=== PATIENT | female | born 1960 | race Caucasian/White ===

== ENCOUNTER 2020-02-25 16:53 | Inpatient (IN) ==
[2020-02-25] MEDS ORDERED: NS 1,000 ML IV ONE (17:17)
[2020-02-25 17:44] LABS: BASO# 0.02 X1000 (0.0-0.2); BASO% 0.2 % (0.0-0.8); EOS# 0.04 X1000 (0.0-0.7); EOS% 0.5 % (0.0-10.0); HEMATOCRIT 41.7 % (37.0-47.0); HEMOGLOBIN 13.7 g/dL (12.0-16.0); IMM GRAN# 0.01 X1000 (0.0-0.04); IMM GRAN% 0.1 % (0.0-0.5); LYMPH# 1.62 X1000 (1.2-3.4); LYMPH% 19.9 % (20.5-51.1); MCH 28.4 PG (27-31); MCHC 32.9 g/dL (33-37); MCV 86.3 FL (81-99); MONO# 0.55 X1000 (0.11-0.59); MONO% 6.8 % (1.7-9.3); MPV 10.1 FL (7.4-10.4); NEUT# 5.89 X1000 (1.4-6.5); NEUT% 72.5 % (42.2-75.2); PLT 245 X1000 (130-400); RBC 4.83 XMIL (4.2-5.4); RDW 13.5 % (11.5-14.5); WBC 8.13 X1000 (4.8-10.8)
[2020-02-25 18:03] LABS: AGAP 17; ALBUMIN 3.8 g/dL (3.5-5.0); ALKALINE PHOSPHATASE 143 U/L (32-104); BUN 10 mg/dL (8-22); CALCIUM 9.3 mg/dL (8.8-10.2); CHLORIDE 99 mmol/L (98-107); COSMO 280; CREATININE 0.8 mg/dL (0.5-0.9); ESTIMATED GFR > 60; GLUCOSE 129 mg/dL (70-104); GOT 21 U/L (10-30); GPT 19 U/L (10-36); POTASSIUM 3.7 mmol/L (3.5-5.1); SODIUM 140 mmol/L (136-145); TCO2 25 mmol/L (25-35); TOTAL PROTEIN 6.3 g/dL (6.3-8.3)
[2020-02-25] MEDS ORDERED: PHENERGAN IV ONE (18:45)
[2020-02-25] MEDS ORDERED: SODIUM CHLORIDE 0.9% INJ ONE (18:45)
--- NOTE | 2020-02-25 18:57 | PROVIDER DOCUMENTATION ---
This chart was entered by Aleyda Morris Scribe, acting as scribe for Heath Quevedo MD. HPI-Abdominal Pain/GI Problem - General Source: patient - History of Present Illness-ABD Nature of Presenting Problems: 59 y/o female presents to the ED via EMS with complaint of diarrhea times seven days and now feeling weak, light-headed, and short of breath with s tanding/walking . The patient denies abdominal pain, nausea, and vomiting. She states she had recent surgery on her left foot with jimmy placement February 06 and has been mostly bed ridden since that time with onset of symptoms the following Friday. She denies recent antibiotic treatment. She did attempt Imodium at home and Dr. Breana Friend also called something in for her Friday and again today but the patient is unaware of the name of these medications. She does give a family history of blood clots in Mother and states she has been taking Lovenox injections daily since her recent surgery. Quality of Pain: reports: none Onset/Duration: reports: 1 week ago Timing: reports: getting worse Activities at Onset: reports: light activity Modifying Factors: worse with: other (standing/walking) Associated Symptoms: reports: diarrhea, shortness of breath, weakness, other (light-headed with standing). denies: fever/chills, nausea, vomiting Last BM: this evening Dark Stools Present?: reports: none noticed Rectal Bleeding: reports: none Rectal Pain: reports: none Emesis Description: reports: none Similar Symptoms Previously?: No <Heath Quevedo - Last Filed: 02/25/20 22:08> <Abiola Kaye - Last Filed: 02/25/20 22:16> - General Chief Complaint: Diarrhea Stated Complaint: WEAKNESS/ N/V/ DEHYDRATION Time Seen by Provider: 02/25/20 17:09 Allergies/Adverse Reactions: Patient Allergies Allergy/AdvReac Type Severity Reaction Status Date / Time No Known Allergies Allergy Verified 02/25/20 17:17 Home Medications: Home Medication List Medication Instructions Recorded Confirmed Last Taken Type Amoxicillin 500 mg PO TID 06/13/18 06/13/18 Unknown History Atenolol 50 mg PO DAILY 06/13/18 06/13/18 Unknown History Colesevelam [Welchol] 2 tab PO TID 06/13/18 06/13/18 Unknown History Ezetimibe 10 mg PO DAILY 06/13/18 06/13/18 Unknown History Levothyroxine Sodium [Synthroid] 25 mcg PO DAILY@0700 06/13/18 06/13/18 Unknown History Lisinopril/Hydrochlorothiazide 1 tab PO DAILY 06/13/18 06/13/18 Unknown History [Lisinopril-Hctz 10-12.5 mg Tab] Meloxicam 15 mg PO DAILY 06/13/18 06/13/18 Unknown History Ondansetron [Zofran] 4 mg PO Q6H PRN PRN #15 tab 06/13/18 Unknown Rx Simvastatin 2 mg PO QHS 06/13/18 06/13/18 Unknown History Hydrocodone/APAP 5 mg/325 mg 1 ea PO Q6H PRN PRN #14 tab 01/29/20 Unknown Rx [[place]-5] Review of Systems - Adult - REVIEW OF SYSTEMS - ADULT Constitutional: reports: fatique. denies: chills, fever Eyes: reports: no symptoms reported Ears, Nose, Mouth & Throat: reports: no symptoms reported Cardiovascular: reports: no symptoms reported Respiratory: reports: dyspnea on exertion, shortness of breath. denies: cough, hemoptysis Gastrointestinal: reports: diarrhea. denies: abdominal pain, nausea, vomiting Genitourinary: reports: no symptoms reported Musculoskeletal: reports: no symptoms reported Integumentary: reports: no symptoms reported Neurological: reports: no symptoms reported Psychiatric: reports: no symptoms reported Endocrine: reports: no symptoms reported Hematologic/Lymphatic: reports: no symptoms reported Allergic/Immunologic: reports: no symptoms reported All Other Systems: Reviewed and Negative <Heath Quevedo - Last Filed: 02/25/20 22:08> Past History - Adult - PAST MEDICAL HISTORY-ADULT Review of Records: reports: Old Records Reviewed, Nursing Assessment Review, Medications Reviewed Cardiovascular: reports: HTN, hyperlipidemia Gastrointestinal: reports: GERD Other Conditions: reports: denies history - PRIOR SURGERIES/PROCEDURES Surgical/Procedure History: reports: none - IMMUNIZATION STATUS Childhood Immunizations: See Nurse Assessment Flu Vaccine: See Nurse Assessment - FAMILY HISTORY Family History: CAD over 55 yo - SOCIAL HISTORY Smoking: non-smoker Living Situation: family <Heath Quevedo - Last Filed: 02/25/20 22:08> Physical Exam-General - PHYSICAL EXAM-ADULT Initial Vital Signs Reviewed: Yes (BP 154/96 on exam ) - CONSTITUTIONAL General Appearance: alert, no apparent distress, obese. negative: appears well - HEAD, EARS, NOSE, MOUTH & THROAT HENMT: normocephalic/atraumatic, TMs normal, pharyngeal erythema (posterior), other (dry mucous membranes w/coated tongue) - NECK Neck: full range of motion, supple - RESPIRATORY Respiratory: lungs clear. negative: rales, rhonchi, wheezing - CARDIOVASCULAR Cardiovascular: regular rate, rhythm - GASTROINTESTINAL (ABDOMEN) Abdominal Exam: non tender, soft. negative: distended, guarding, rebound - MUSCULOSKELETAL Extremity: other (cast on left lower leg) - SKIN Integumentary: warm/dry. negative: diaphoresis - NEUROLOGIC Neurologic: grossly normal - PSYCHIATRIC Psych/Mental Status: normal mood/affect, normal thought content, normal thought process, oriented x 3 <Heath uQevedo - Last Filed: 02/25/20 22:08> Progress - PLAN OF CARE/RESULTS Progress/Plan/Lab Results: Vital Signs - 8 hr 02/25/20 17:00 Temperature 97.6 F Pulse Rate 78 Respiratory Rate 20 Blood Pressure 154/96 O2 Sat by Pulse Oximetry 95 Result Diagrams: 02/25/20 17:30 02/25/20 17:30 - CT/MRI 1 CT Study: Abdomen, Angiogram, Pelvis Impression: Abnormal (EXAM: CT ABD/PELVIS/PULM ARTERIES INDICATION: recent surgery SOB, elev ddimer,diarrhea, vomiting TECHNIQUE: This exam was performed using automated exposure control, adjustment of mA or kV according to patient size, and/or use of iterative reconstruction technique. Thin section axial images through the chest and 3-D MIPS were obtained. Standard axial images through the abdomen and pelvis were obtained and coronal MIPS were generated. COMPARISON: None. FINDINGS: CTA CHEST: There is a large saddle embolus involving the left main and right main pulmonary arteries. The clot extends to higher order branches bilaterally, more extensive on the right. The clot burden appears heavy. There is no evidence of aortic dissection or aneurysm. There does not appear to be significant right heart strain. There is no cardiomegaly. There is no evidence of significant mediastinal or hilar lymphadenopathy. There is minimal subsegmental atelectasis bilaterally at the lower lung zones. The lungs are clear, otherwise. There is no evidence of pulmonary infarction. No pleural fluid collection and no pneumothorax is appreciated. CT ABDOMEN/PELVIS: There has been a prior cholecystectomy. The liver, spleen, pancreas, adrenal glands, kidneys, and urinary bladder are unremarkable. There has been a prior hysterectomy. The the appendix is normal. There is no focal bowel wall thickening or bowel obstruction. The remainder of the GI tract is unremarkable. No focal inflammatory changes, free abdominal gas, or free fluid is appreciated. IMPRESSION: 1.Bilateral pulmonary emboli with a large saddle embolus. The clot burden appears to be heavy. 2.Mild subsegmental atelectasis bilaterally but no evidence of pulmonary infarct. 3.No evidence of acute abdominal or pelvic pathology. Electronically signed by Rod Ray 02/25/2020 9:35 PM) - CONSULTS/PCP/HOSPITALIST Notification #1 *Consult/PCP/Hospitalist*: Hospitalist, Dr. Lopez Time Discussed: 22:09 Reason/Comments: Pulmonary emboli Consult Disposition: Admit - CHANGE OF SHIFT REPORT (ED Provider) 1 Report Given and Care Transferred to:: Scott Kaye Time of Transfer: 18:54 Items Pending: Labs (D-dimer), Other (EKG) <Heath Qeuvedo - Last Filed: 02/25/20 22:08> - PLAN OF CARE/RESULTS Progress/Plan/Lab Results: Vital Signs - 8 hr 02/25/20 17:00 02/25/20 18:20 02/25/20 18:53 Temperature 97.6 F Pulse Rate 78 73 Pulse Rate [Sitting] 80 Pulse Rate [Standing] 94 H Pulse Rate [Supine] 75 Respiratory Rate 20 20 Blood Pressure 154/96 151/100 Blood Pressure [Sitting] 170/100 Blood Pressure [Standing] 173/98 Blood Pressure [Supine] 161/102 O2 Sat by Pulse Oximetry 95 95 Laboratory Results - last 24 hr 02/25/20 02/25/20 02/25/20 17:30 17:30 17:30 WBC 8.13 RBC 4.83 Hgb 13.7 Hct 41.7 MCV 86.3 MCH 28.4 MCHC 32.9 L RDW Std Deviation 13.5 Plt Count 245 MPV 10.1 Immature Gran % (Auto) 0.1 Neut % (Auto) 72.5 Lymph % (Auto) 19.9 L [place] % (Auto) 6.8 Eos % (Auto) 0.5 Baso % (Auto) 0.2 Immature Gran # (Auto) 0.01 Neut # (Auto) 5.89 Lymph # (Auto) 1.62 [place] # (Auto) 0.55 Eos # (Auto) 0.04 Baso # (Auto) 0.02 D-Dimer, Quantitative Sodium 140 Potassium 3.7 Chloride 99 Carbon Dioxide 25 Anion Gap 17 BUN 10 Creatinine 0.8 Estimated GFR/1.73 m2 > 60 BUN/Creatinine Ratio 13 Glucose 129 H Calculated Osmolality 280 Calcium 9.3 Magnesium 1.8 Total Bilirubin 1.50 H AST 21 ALT 19 Alkaline Phosphatase 143 H Total Protein 6.3 Albumin 3.8 Globulin 3.0 Albumin/Globulin Ratio 2.0 02/25/20 17:30 WBC RBC Hgb Hct MCV MCH MCHC RDW Std Deviation Plt Count MPV Immature Gran % (Auto) Neut % (Auto) Lymph % (Auto) [place] % (Auto) Eos % (Auto) Baso % (Auto) Immature Gran # (Auto) Neut # (Auto) Lymph # (Auto) [place] # (Auto) Eos # (Auto) Baso # (Auto) D-Dimer, Quantitative 10.61 H Sodium Potassium Chloride Carbon Dioxide Anion Gap BUN Creatinine Estimated GFR/1.73 m2 BUN/Creatinine Ratio Glucose Calculated Osmolality Calcium Magnesium Total Bilirubin AST ALT Alkaline Phosphatase Total Protein Albumin Globulin Albumin/Globulin Ratio Orders Category Date Time Status Orthostatic Vital Signs NOW Care 02/25/20 18:[address] ABD/PELVIS/PULM ARTERIES [CT] Stat Exams 02/25/20 20:21 Completed CBC WITH DIFF [HEME] Stat Lab 02/25/20 17:30 Completed COMPREHENSIVE METABOLIC PANEL [CHEM] Stat Lab 02/25/20 17:30 Completed D-DIMER [COAG] Stat Lab 02/25/20 17:30 Completed MAGNESIUM [CHEM] Stat Lab 02/25/20 17:30 Completed 0.9% Sodium Chloride Inj [Ns] 1,000 ml Med 02/25/20 17:17 Discontinued IV 999 mls/hr Enoxaparin [Lovenox] Med 02/25/20 22:00 Active 100 mg SUBQ Q12H Promethazine [Phenergan] Med 02/25/20 18:45 Discontinued 25 mg IV NOW ONE Sodium Chloride 0.9% Med 02/25/20 18:45 Discontinued 10 ml INJ NOW ONE EKG [EKG] Routine Ther 02/25/20 17:24 Ordered Patient signed out to me from Dr Quevedo, pending ddimer and final dispo. DDimer elevated and CT showing large clot burden. Spoke to adonis Calvo instructional technology teacher. Given her vitals are stable he is ok with patient going to the floor with telemetry and would like lovenox 1mg/kg q12h. He would like an ECHO ordered for the AM. Orders placed per his recommendations. Result Diagrams: 02/25/20 17:30 02/25/20 17:30 <Abiola Kaye - Last Filed: 02/25/20 22:16> Departure - Departure Date of Disposition Decision: 02/25/20 Time of Disposition Decision: 22:08 <Heath Quevedo - Last Filed: 02/25/20 22:08> - Departure Certified Medical Emergency: Emergent - Critical Care Note This patient required my direct & personal management of CC.: Yes Total Time (mins): 35 Critical Care Statement: This patient required my direct personal management to treat or rule out processes, the absence of which, could potentiallly result in sudden, clinically significant life or limb threatening deterioration. <Abiola Kaye - Last Filed: 02/25/20 22:16> - Departure DIAGNOSIS: Bilateral pulmonary embolism, Shortness of breath Diarrhea Qualifiers: Diarrhea type: unspecified type Qualified Code(s): R19.7 - Diarrhea, unspecified Disposition: ADMITTED INPATIENT 09 Condition: Critical Referrals and Follow-Ups: None,PCP [Primary Care Provider] - Attestation - Physician/ SUJEY Attestation Patient care was provided by Advanced Practice Provider:: No The physician spent face to face time with patient:: Yes Advanced Practice Provider documentation review:: Supervising physician onsite and consulted in the evaluation and care of this patient. The physician did have a face to face encounter with the patient. <Abiola Kaye - Last Filed: 02/25/20 22:16> This chart was documented by the indicated scribe, (Aleyda Morris, Miguelibe) and accurately reflects the services I performed and decisions made by me, Heath Quevedo MD, as attested by the provider's signature.
--- NOTE | 2020-02-25 21:38 | Diag Imaging Result Doc PS360 ---
EXAM: CT ABD/PELVIS/PULM ARTERIES INDICATION: recent surgery SOB, elev ddimer,diarrhea, vomiting TECHNIQUE: This exam was performed using automated exposure control, adjustment of mA or kV according to patient size, and/or use of iterative reconstruction technique. Thin section axial images through the chest and 3-D MIPS were obtained. Standard axial images through the abdomen and pelvis were obtained and coronal MIPS were generated. COMPARISON: None. FINDINGS: CTA CHEST: There is a large saddle embolus involving the left main and right main pulmonary arteries. The clot extends to higher order branches bilaterally, more extensive on the right. The clot burden appears heavy. There is no evidence of aortic dissection or aneurysm. There does not appear to be significant right heart strain. There is no cardiomegaly. There is no evidence of significant mediastinal or hilar lymphadenopathy. There is minimal subsegmental atelectasis bilaterally at the lower lung zones. The lungs are clear, otherwise. There is no evidence of pulmonary infarction. No pleural fluid collection and no pneumothorax is appreciated. CT ABDOMEN/PELVIS: There has been a prior cholecystectomy. The liver, spleen, pancreas, adrenal glands, kidneys, and urinary bladder are unremarkable. There has been a prior hysterectomy. The the appendix is normal. There is no focal bowel wall thickening or bowel obstruction. The remainder of the GI tract is unremarkable. No focal inflammatory changes, free abdominal gas, or free fluid is appreciated. IMPRESSION: 1.Bilateral pulmonary emboli with a large saddle embolus. The clot burden appears to be heavy. 2.Mild subsegmental atelectasis bilaterally but no evidence of pulmonary infarct. 3.No evidence of acute abdominal or pelvic pathology. Electronically signed by Rod Ray 02/25/2020 9:35 PM
[2020-02-25] MEDS ORDERED: LOVENOX SUBQ SCH (22:00)
[2020-02-25] MEDS ORDERED: ZOFRAN IV PRN (22:15)
[2020-02-25] MEDS ORDERED: NS 1,000 ML IV SCH (22:30)
[2020-02-25] MEDS ORDERED: FLAGYL PO SCH (22:30)
--- NOTE | 2020-02-25 23:59 | ED EKG INTERP ---
EKG Interpretation - EKG Time of EKG reading by physician:: 19:08 EKG Read and Signed by:: Abiola Kaye EKG Interpretation (*Must complete 3 of following elements*): Abnormal Rate: 71 Rhythm: NSR [place]: left QRS: other (prolonged QT) ST Wave: non-specific ST changes (t wave inversions in multiple leads) Prior EKG Comparison: changes noted (10/2018) Attestation - Physician/ SUJEY Attestation Patient care was provided by Advanced Practice Provider:: No The physician spent face to face time with patient:: Yes Advanced Practice Provider documentation review:: Supervising physician onsite and consulted in the evaluation and care of this patient. The physician did have a face to face encounter with the patient.
--- NOTE | 2020-02-26 00:01 | EKG Report ---
Test Performed on : 02/25/2020 6:53:58 PM Test Reason : emboli Blood Pressure : / mmHG Vent. Rate : 071 BPM Atrial Rate : 071 BPM P-R Int : 136 ms QRS Dur : 088 ms QT Int : 462 ms P-R-T Axes : 042 -41 -56 degrees QTc Int : 502 ms Normal sinus rhythm. Left axis deviation Possible Lateral infarct , age undetermined T wave abnormality, consider inferior ischemia T wave abnormality, consider anterior ischemia Prolonged QT Abnormal ECG When compared with ECG of 13-JUN-2018 08:33, Borderline criteria for Lateral infarct are now present T wave inversion more evident in Inferior leads T wave inversion now evident in Anterolateral leads QT has lengthened Unconfirmed Result
[2020-02-26] MEDS: NS 1,000 ML IV SCH ×4 (03:30→18:06)
[2020-02-26] MEDS: FLAGYL PO SCH ×3 (05:47→22:44)
[2020-02-26] MEDS ORDERED: ZOFRAN PO PRN (06:09)
[2020-02-26] MEDS ORDERED: HYDROCHLOROTHIAZIDE PO PRN (06:09)
--- NOTE | 2020-02-26 06:52 | HISTORY AND PHYSICAL ---
CHIEF COMPLAINT: Diarrhea. HISTORY OF PRESENT ILLNESS: This is a 59-year-old female who recently broke her left lower extremity and had surgery with jimmy placement on February 06. She has been somewhat bedbound or very immobile since that time. She started having diarrhea around 7 days ago. She denies abdominal pain, nausea or vomiting. She came into the emergency room related to the diarrhea. She took some Imodium which Dr. Breana Friend had called in for her, I believe it was Friday. She was started on Lovenox injections at home. She really has no past medical history other than hypertension, hyperlipidemia, hypothyroidism and GERD, but her mother does have a history of blood clots. On arrival, she made some vague complaints from what I understand about shortness of breath. A D- dimer was checked, it was positive. A CT angio was obtained which showed bilateral pulmonary emboli with a large saddle embolus. A clot burden appears to be heavy. She was transferred to [place]'s PCU for admission. PAST MEDICAL HISTORY: See HPI. PREVIOUS SURGICAL HISTORY: 1. Left foot and ankle surgery. 2. Cholecystectomy. 3. Hysterectomy. 4. Right knee surgery. SOCIAL HISTORY: No tobacco, alcohol or illicit drugs. FAMILY HISTORY: Positive for blood clots in her mother. ALLERGIES: No known drug allergies. HOME MEDICATIONS: 1. Aspirin 325 p.o. daily. 2. Atenolol 50 mg p.o. daily. 3. Vitamin D3 4000 units p.o. daily. 4. Welchol 625 two tablets p.o. daily. 5. Vitamin B12 5000 mcg p.o. daily. 6. Omeprazole 20 mg p.o. b.i.d. 7. Premarin 0.625 mg p.o. daily. 8. Hydrochlorothiazide 12.5 p.o. p.r.n. 9. Synthroid 25 mcg p.o. daily. 10.Lisinopril hydrochlorothiazide 10/12.5 one p.o. daily. 11.Meloxicam 15 mg p.o. daily. 12.Zofran 4 mg p.o. q.6 p.r.n. 13.Somatostatin 20 mg p.o. at bedtime. REVIEW OF SYSTEMS: Fourteen point review of systems conducted with the patient. Pertinent positives listed above in the HPI. All other systems reviewed and found to be negative. PHYSICAL EXAMINATION: VITAL SIGNS: Temperature 97.9 degrees, pulse 77, respirations 17, blood pressure 149/74, oxygen saturation 95% on room air. GENERAL: Pleasant 59-year-old female lying in [facility] bed. She is alert and oriented x3, in no acute distress. HEENT: Head is atraumatic, normocephalic. Pupils equal, round and reactive to light. Extraocular eye movements intact. Sclerae anicteric. Conjunctivae pink. Oral mucosa is somewhat dry. NECK: Supple. No JVD. No thyromegaly. Trachea is midline. No cervical lymphadenopathy. CARDIAC: S1, S2 appreciated. No murmurs, gallops, rubs. LUNGS: Clear to auscultation bilaterally. No rhonchi, wheezes, rubs. Symmetric rise and fall of respirations. ABDOMEN: Soft, nondistended, nontender. Bowel sounds present all 4 quadrants. Normoactive. No pulsatile mass. No organomegaly. EXTREMITIES: No cyanosis, clubbing or edema. Left foot is in a cast. 2+ pedal pulses on the right side. GENITOURINARY: No bladder distention. Patient voids. Otherwise deferred. NEUROLOGICAL: Alert and oriented x3. No focal motor deficits. Otherwise nonfocal examination. DIAGNOSTIC DATA: CT of the abdomen and pelvis shows bilateral pulmonary emboli with a large saddle PE, heavy clot burden. LABORATORY DATA: CBC within normal limits. D-dimer 10.61. Sodium 140, potassium 3.7, chloride 99, carbon dioxide 25, BUN 10, creatinine 0.8, glucose 129. ASSESSMENT AND PLAN: 1. Large saddle PE. 2. Hypertension. 3. Diarrhea. 4. Hypothyroidism. PLAN: Admit patient to the [facility]. Lovenox 1 mg/kg b.i.d. Her first dose was started at [place]. We will order echo of her heart, ultrasound of her lower extremities. Stool culture and C. diff to be obtained. Morphine as needed for pain. We will rehydrate with normal saline. Patient was started on Flagyl 500 mg p.o. q.8 at [place] for diarrhea. We will continue at this time. Continue Synthroid. Check TSH. Continue antihypertensives. Further recommendations per patient's clinical course. Dictated by FRAN Cristina for Konstantin Hawley MD I have performed a face to face diagnostic evaluation. Labs/Xrays- reviewed, Exam- Chest- clear, CV- regular, Abd- soft. A/P- PTE- Admit, NPO, Lovenox. Dr. Hawley cc: FRAN Cristina MD [facility]
[2020-02-26] MEDS: WELCHOL PO SCH ×3 (08:20→20:44)
[2020-02-26] MEDS: VITAMIN D PO SCH (08:20)
[2020-02-26] MEDS: ASPIRIN PO SCH (08:20)
[2020-02-26] MEDS: PRINZIDE 10/12.5MG PO SCH (08:20)
[2020-02-26] MEDS: TENORMIN PO SCH (08:20)
[2020-02-26] MEDS: PRILOSEC PO SCH ×2 (08:21→20:44)
[2020-02-26] MEDS: VITAMIN B-12 SL SCH (08:21)
[2020-02-26] MEDS: SYNTHROID PO SCH (08:21)
[2020-02-26] MEDS ORDERED: ZETIA PO SCH (09:00)
[2020-02-26] MEDS ORDERED: LOVENOX SUBQ SCH (10:00)
[2020-02-26] MEDS ORDERED: HEPARIN IV PRN (10:09)
[2020-02-26] MEDS ORDERED: HEPARIN IV ONE (10:09)
[2020-02-26] MEDS ORDERED: HEPARIN 25,000 UNITS/D5W 25,000 UNIT/250 ML IV.SOLN IV SCH (10:15)
--- NOTE | 2020-02-26 11:15 | PROGRESS NOTE ---
DATE: 02/26/2020 SUBJECTIVE: The patient reports feeling fine. Denies any chest pain, shortness of breath, no chest pressure. OBJECTIVE: Vital Signs: Temperature 98.3 degrees, heart rate 68, respiratory rate 16, blood pressure 141/75, O2 saturation 94% on room air. General Examination: This is a 59-year-old female, lying in bed in no acute distress. Cardiovascular exam: S1, S2 heard. No murmurs, gallops, or rubs. Regular rate and rhythm. Respiratory exam: Clear bilaterally to auscultation. No work of breathing or using accessory muscles. Abdomen: Soft, nontender to palpation. Bowel sounds present. No organomegaly. Extremities: No clubbing, cyanosis, or edema. Peripheral pulses present in both legs. Neurological exam: Patient is alert and oriented times three. Moves 4 extremities. LABORATORY DATA: Reviewed. ASSESSMENT AND PLAN: 1. Large saddle pulmonary embolism. Patient had been started on Lovenox yesterday 1 mg/kg every 12 hours. What is important and surprising at the same time is that this patient has been on Lovenox since she had this ankle wound surgery. At this point, I prefer to change to heparin drip. We are going to check echocardiogram to see if there is any right heart strain. We will continue to monitor this patient closely. 2. Hypertension. Patient has been restarted on home medications. Blood pressure is under control. 3. Diarrhea. That condition is getting better. No more episodes of diarrhea. 4. Hypothyroidism. We will continue with home medications. 5. Disposition: We will continue to monitor this patient closely in the progressive care unit. We will keep her at least until Friday and monitor this patient closely. cc: Akshat Martinez MD
[2020-02-26 11:26] LABS: INR 1.17; PROTIME 15.1 Seconds (11.0-16.0)
[2020-02-26 11:27] LABS: PTT 38.6 Seconds (22.3-41.8)
[2020-02-26] MEDS: MORPHINE IV PRN (14:32)
--- NOTE | 2020-02-26 16:09 | ECHO REPORT ---
ORDER DATE: 02/26/2020 ECHOCARDIOGRAPHIC MEASUREMENTS: 1. Interventricular septum 0.9. 2. Left ventricular posterior wall 0.8. 3. Diastolic diameter 3.1 cm. 4. Left atrium 2.6 cm. 5. Aorta 2.6 cm. 6. Technically suboptimal study. 7. Aortic valve leaflets are trileaflet. 8. Pulmonic valve was normal. 9. There is mild mitral regurgitation. 10. Normal left ventricular cavity size. Estimated ejection fraction of 55 to 60 percent. 11. There is mild mitral regurgitation. 12. Right ventricle is dilated with reduced right ventricular systolic function. 13. There is moderate tricuspid regurgitation. Peak velocity across the tricuspid valve was 3.6 m/sec. 14. Pulmonary artery systolic pressure of 63 mmHg. There is pulmonary arterial hypertension. 15. Peak velocity across the aortic valve less than 2 m/sec. There is no aortic stenosis or regurgitation. 16. Anterior echo-free space suggestive of pericardial fat pad was noted. 17. IVC was dilated at 2.1 cm. cc: Apolinar Boateng MD
[2020-02-26] MEDS: ZOCOR PO SCH (20:44)
[2020-02-26] MEDS: ZETIA PO SCH (20:45)
[2020-02-27] MEDS: NS 1,000 ML IV SCH ×5 (01:47→19:13)
[2020-02-27] MEDS: HEPARIN 25,000 UNITS/D5W 25,000 UNIT/250 ML IV.SOLN IV SCH ×2 (01:57→17:11)
[2020-02-27] MEDS: PRILOSEC PO SCH ×3 (05:27→20:19)
[2020-02-27] MEDS: SYNTHROID PO SCH ×2 (05:27→06:15)
[2020-02-27] MEDS: FLAGYL PO SCH ×2 (05:27→05:32)
[2020-02-27 06:42] LABS: BASO# 0.02 X1000 (0.0-0.2); BASO% 0.3 % (0.0-0.8); EOS# 0.12 X1000 (0.0-0.7); EOS% 1.8 % (0.0-10.0); HEMATOCRIT 36.9 % (37.0-47.0); HEMOGLOBIN 11.9 g/dL (12.0-16.0); LYMPH% 31.7 % (20.5-51.1); MCH 28.5 PG (27-31); MCHC 32.2 g/dL (33-37); MCV 88.3 FL (81-99); MONO# 0.39 X1000 (0.11-0.59); MONO% 5.9 % (1.7-9.3); MPV 10.8 FL (7.4-10.4); NEUT% 60.3 % (42.2-75.2); PLT 209 X1000 (130-400); RBC 4.18 XMIL (4.2-5.4); RDW 13.6 % (11.5-14.5); WBC 6.63 X1000 (4.8-10.8)
[2020-02-27 07:17] LABS: AGAP 14; BUN 8 mg/dL (8-22); CALCIUM 8.6 mg/dL (8.8-10.2); CHLORIDE 106 mmol/L (98-107); COSMO 280; CREATININE 0.9 mg/dL (0.5-0.9); ESTIMATED GFR > 60; GLUCOSE 102 mg/dL (70-104); POTASSIUM 3.5 mmol/L (3.5-5.1); SODIUM 141 mmol/L (136-145); TCO2 21 mmol/L (25-35)
[2020-02-27] MEDS: ASPIRIN PO SCH (08:32)
[2020-02-27] MEDS: VITAMIN B-12 SL SCH (08:32)
[2020-02-27] MEDS: TENORMIN PO SCH (08:32)
[2020-02-27] MEDS: WELCHOL PO SCH ×3 (08:32→20:18)
[2020-02-27] MEDS: PRINZIDE 10/12.5MG PO SCH (08:32)
[2020-02-27] MEDS: VITAMIN D PO SCH (08:33)
[2020-02-27] MEDS: NORVASC PO SCH (09:55)
--- NOTE | 2020-02-27 12:05 | HEMO/ONC CONSULTATION ---
DATE: 02/27/2020 REASON FOR CONSULTATION: Pulmonary embolism. HISTORY OF PRESENT ILLNESS: This is a 59-year-old female who recently broke her left ankle, and had surgery with jimmy replacement on 02/07/2020, approximately 2-1/2 weeks ago. She has been somewhat bedbound, and has been using Lovenox injections at home daily. She states that around 7 days ago, she started having diarrhea. She denies any abdominal pain, nausea, vomiting. The diarrhea brought her to the emergency room. On arrival, she had vague complaints of shortness of breath. Her evaluation showed an elevated D-dimer. CT angiogram revealed bilateral pulmonary emboli with a large saddle embolus. Clot burden was heavy. Since her admission, the patient has been switched to heparin drip. Today patient complains of nausea. She also has a significant amount of anxiety. PAST MEDICAL HISTORY: Includes hypertension, hyperlipidemia, hypothyroidism, GERD. PAST SURGICAL HISTORY: 1. Left foot and ankle surgery, 02/07/2020. 2. Cholecystectomy. 3. Hysterectomy. 4. Right knee surgery. FAMILY HISTORY: Her mother is positive for blood clots. SOCIAL HISTORY: The patient denies tobacco, alcohol, or illicit drugs. ALLERGIES: No known drug allergies. HOME MEDICATIONS: Aspirin, atenolol, vitamin D3, Welchol, vitamin B12, omeprazole, Premarin, hydrochlorothiazide, Synthroid, lisinopril/hydrochlorothiazide, meloxicam, Zofran, somatostatin. REVIEW OF SYSTEMS: Pertinent positives are mentioned in the HPI. All other review of systems are negative. PHYSICAL EXAMINATION: Vital Signs: Temperature 98 degrees, pulse rate 47, respiratory rate 15, blood pressure 181/67, O2 saturation 95% on room air. She is in 0/10 pain. General: The patient is in no acute distress. HEENT: Sclerae anicteric. PERRLA. Oral mucosa is normal. Cardiovascular: Normal S1, S2. Heart rate and rhythm regular. No murmurs appreciated. Respiratory: Lung sounds are clear to auscultation. Normal respiratory effort. Gastrointestinal: Abdomen is soft, nondistended, nontender. Bowel sounds present. Extremities: Left foot is in a cast. No lower extremity edema noted. Neurological: Alert and oriented x3. No focal motor deficits noted. LABORATORY DATA: WBCs 6.63, hemoglobin 11.9, hematocrit 36.9, platelet count 209,000. IMAGING: Abdominal, pelvis, pulmonary artery CT reveals: 1) Bilateral pulmonary emboli with large saddle embolus. Clot burden appears heavy. 2) Mild subsegmental atelectasis bilaterally, and no evidence of pulmonary infarct. Echocardiogram shows ejection fraction of 55% to 60%. Right ventricle is dilated with reduced right ventricular systolic function. ASSESSMENT: 1. Large saddle pulmonary embolism. Continue the patient on heparin at this time. We will evaluate a hypercoagulable workup on this patient. We will continue to monitor closely and follow up with her in the office next week. 2. Hypertension and hypothyroidism. Continue medical management as you are doing. 3. Diarrhea. It appears that this has resolved. Continue any medical management as necessary. 4. Nausea: Nausea started today. Patient unable to eat. Instructed staff to give zofran. 5. Anxiety: Staff states patient is very anxious regarding her PE's. Nausea may be in relation to anxiety. Dictated by FRAN Plummer for Syed Larios MD cc: Syed Larios MD MTDD
[2020-02-27] MEDS: ZOFRAN IV PRN (13:24)
--- NOTE | 2020-02-27 13:35 | PROGRESS NOTE ---
DATE: 02/27/2020 INTERVAL HISTORY: The patient is comfortable at rest. Some relatively mild dyspnea on exertion. No acute events overnight. No new complaints. Still some global weakness/fatigue, which is slightly improved. REVIEW OF SYSTEMS: Twelve point review of systems is negative except as per interval history. LABS: WBC 6.6, hemoglobin 11.9, hematocrit 36.9, platelets 209,000. Basic metabolic panel unremarkable. IMAGING: Echocardiogram with normal EF but pulmonary hypertension and dilated right ventricle. VITALS: T-max 98.3 degrees, pulse 49, respirations 17, blood pressure 171/72, O2 saturation 96% on room air. PHYSICAL EXAMINATION: General: No acute distress. Vitals: As above. HEENT: Normocephalic, atraumatic. Moist mucous membranes. No cervical adenopathy. Cardiovascular: Slightly bradycardic but regular. No murmurs noted. Pulmonary: Clear to auscultation bilaterally. No wheezing, rales, or rhonchi. Abdomen: Soft, nontender, nondistended. Bowel sounds positive. Extremities: Peripheral pulses intact. No clubbing or cyanosis. Neurologic: Cranial nerves grossly intact. No focal deficits identified. Psychiatric: Normal mood and affect. Awake, alert, and oriented x3. ASSESSMENT AND PLAN: 1. Large saddle embolus. The patient was started on Lovenox initially but changed to heparin yesterday. Seems to be doing well thus far. Echocardiogram does show some signs of right heart strain but clinically, the patient appears quite stable. Oxygenation is good. Blood pressure is actually elevated. We will plan on monitoring patient overnight. If she decompensates, then may need tPA. Otherwise, will likely transition to [facility] and discharge home tomorrow. 2. Hypertension. The patient was initially restarted on her home medications but due to some mild bradycardia, I am holding her atenolol. Continue lisinopril and hydrochlorothiazide. Given ongoing significant elevations in blood pressure, we will also add some Norvasc and monitor. 3. Diarrhea, resolved. 4. Hypothyroidism. Continue home Synthroid.
[2020-02-27] MEDS: TYLENOL PO PRN (19:13)
[2020-02-27] MEDS: ZETIA PO SCH (20:19)
[2020-02-27] MEDS: ZOCOR PO SCH (20:19)
[2020-02-28] MEDS: NS 1,000 ML IV SCH ×2 (02:53→11:32)
[2020-02-28] MEDS: HEPARIN 25,000 UNITS/D5W 25,000 UNIT/250 ML IV.SOLN IV SCH ×2 (02:53→16:41)
[2020-02-28] MEDS: MORPHINE IV PRN (04:28)
[2020-02-28] MEDS: ZOFRAN IV PRN (04:34)
[2020-02-28] MEDS: SYNTHROID PO SCH ×2 (05:26→06:15)
[2020-02-28] MEDS: PRILOSEC PO SCH ×3 (05:26→20:06)
[2020-02-28 06:38] LABS: BASO# 0.02 X1000 (0.0-0.2); BASO% 0.4 % (0.0-0.8); EOS# 0.16 X1000 (0.0-0.7); EOS% 2.8 % (0.0-10.0); HEMATOCRIT 36.6 % (37.0-47.0); HEMOGLOBIN 11.8 g/dL (12.0-16.0); LYMPH# 1.69 X1000 (1.2-3.4); LYMPH% 29.7 % (20.5-51.1); MCH 28.2 PG (27-31); MCHC 32.2 g/dL (33-37); MCV 87.6 FL (81-99); MONO# 0.38 X1000 (0.11-0.59); MONO% 6.7 % (1.7-9.3); MPV 10.8 FL (7.4-10.4); NEUT# 3.44 X1000 (1.4-6.5); NEUT% 60.4 % (42.2-75.2); PLT 211 X1000 (130-400); RBC 4.18 XMIL (4.2-5.4); RDW 13.4 % (11.5-14.5); WBC 5.69 X1000 (4.8-10.8)
[2020-02-28 06:51] LABS: AGAP 12; BUN 5 mg/dL (8-22); CALCIUM 8.4 mg/dL (8.8-10.2); CHLORIDE 108 mmol/L (98-107); COSMO 283; CREATININE 0.8 mg/dL (0.5-0.9); ESTIMATED GFR > 60; GLUCOSE 144 mg/dL (70-104); POTASSIUM 3.6 mmol/L (3.5-5.1); SODIUM 142 mmol/L (136-145); TCO2 22 mmol/L (25-35)
[2020-02-28] MEDS: PRINZIDE 10/12.5MG PO SCH (08:46)
[2020-02-28] MEDS: VITAMIN D PO SCH (08:46)
[2020-02-28] MEDS: NORVASC PO SCH (08:46)
[2020-02-28] MEDS: VITAMIN B-12 SL SCH (08:46)
[2020-02-28] MEDS: ASPIRIN PO SCH (08:46)
[2020-02-28] MEDS: WELCHOL PO SCH ×3 (08:46→20:06)
[2020-02-28] MEDS ORDERED: APRESOLINE IV PRN (13:35)
[2020-02-28] MEDS ORDERED: PRINIVIL PO ONE (13:36)
--- NOTE | 2020-02-28 13:37 | HEMO/ONC PROGRESS NOTE ---
DATE: 02/28/2020 SUBJECTIVE: Ms. Michael is sitting up in her bed this morning. She appears much more comfortable than she did over the weekend. She states she feels better. She has had some nausea since she started on Norvasc. The patient has a good bit of anxiety regarding her clot in her chest. She is concerned about whether she should go back to work until the clot is resolved. The patient denies any pain or shortness of breath today. OBJECTIVE: Vital Signs: Temperature 97.9 degrees, pulse rate 52, respiratory rate 20, blood pressure 171/72, O2 saturation is 97% on room air. She is in 0/10 pain. Physical Examination: General: The patient is in no physical distress. She often gets teary- eyed during our conversation. HEENT: Sclerae are anicteric. PERRLA. Oral mucosa is normal. Cardiovascular: Normal S1, S2. Heart rate and rhythm are regular, rate bradycardic. Respiratory: Lung sounds are clear to auscultation. Normal respiratory effort. Gastrointestinal: Abdomen is soft, nondistended, nontender. Bowel sounds are present. Extremities: Left foot is in a cast. No lower extremity edema noted. Neurological: Alert and oriented x3. No focal motor deficits noted. Laboratory Data: WBCs 5.69, hemoglobin 11.8, hematocrit 36.6, platelet count 211,000. Homocystine within normal limits. Continuing to wait on hypercoagulable workup results. ASSESSMENT AND PLAN: 1. Large saddle pulmonary embolism. The patient is continuing on heparin at this time. We are continuing to wait on her hypercoagulable workup. The patient does have right heart strain. We are continuing to monitor closely. 2. Hypertension and hypothyroidism. The patient has had some elevated blood pressures while in the hospital and additional blood pressure medicine has been added to her home medications which, so far, the patient tells me it has been making her nauseated. Continue medical management as you are doing. 3. Diarrhea. It appears to have resolved. Continue medical management as necessary. The patient is on Welchol. 4. Nausea. The patient has been nauseated since yesterday. She is receiving Zofran and Ativan as needed. 5. Anxiety. The patient is very tearful when discussing her health. She states she had a dose of Ativan yesterday which helps her to relax and sleep really good. She states it helped her. Dictated by FRAN Plummer for Syed Mott MD As above. Discussed with Dr. Carl. Proceed with IVC retrivable filter. Syed mott MD cc: Syed Mott MD [facility]
[2020-02-28] MEDS ORDERED: APRESOLINE IV SCH (13:45)
--- NOTE | 2020-02-28 14:00 | PROGRESS NOTE ---
DATE: 02/28/2020 INTERVAL HISTORY: No acute events overnight. SUBJECTIVE: Ms. Michael is denying any chest pain. She denies shortness of breath at rest. She denies cough. She denies nausea, vomiting, abdominal pain. Her diarrhea has improved. We discussed about a provoked pulmonary embolism. We discussed about blood thinner therapy. Oncology team is also on board. Review of systems: Negative for chest pain. Negative for shortness of breath at est. Negative for diarrhea. Positive for anxiety. VITALS: Temperature 97.9 degrees, pulse 58, respiratory rate 20, blood pressure 170/70, saturating 97% on room air. PHYSICAL EXAMINATION: Not in acute distress. Oral cavity is moist. Air entry bilaterally equal. No wheezing, rhonchi, or crackles. S1, S2 normal. Bradycardic. No murmur, rub, or gallop. Abdomen: Soft, nontender. Left lower extremity is in a cast. Right lower extremity does not have edema. Intact dorsalis pedis pulses bilaterally. She does not have any jugular venous distention. Negative hepatojugular reflex. LABS: Suggestive of hemoglobin of 11.8, platelets 211,000. BUN 5, creatinine 0.8. MICROBIOLOGY: No new data. She does have chloride of 108. Her IV fluids have been stopped. Her homocystine level was within normal limits. ASSESSMENT AND PLAN: 1. Acute provoked saddle pulmonary embolism, likely due to left lower extremity orthopedic surgery earlier in the month. Continue intravenous heparin drip. The patient has evidence of right ventricular strain and dilatation on electrocardiogram and echocardiogram findings. She also has pulmonary artery hypertension. She does not have any features of congestive heart failure on the right side at the moment. Oncology team on board. Appreciate recommendations. Based on my discussion with the patient, oncology team may plan inferior vena cava filter. 2. Essential hypertension. Considering her large pulmonary embolism and evidence of right ventricular strain, I will try and control her blood pressure. I will give additional dose of lisinopril and I will increase her home hydrochlorothiazide/lisinopril dose starting tomorrow. She has been started on amlodipine. I will start her on intravenous hydralazine as needed. Her atenolol has been stopped because of bradycardia. 3. Diarrhea, resolved. 4. Hypothyroidism. Continue levothyroxine. 5. Others. Continue ezetimibe and simvastatin for hyperlipidemia, aspirin which is her home medication, omeprazole for gastroesophageal reflux disease. 6. Disposition. I will start patient on MiraLAX for constipation. Once cleared by oncology, I will get physical therapy on board to help her ambulate. At home, she has been using crutches because of recent surgery. She would eventually, it seems like, be a candidate to go home. She may or may not need home physical therapy. Plan of care discussed with Ms. Michael. All of her questions have been answered. Time spent: 35 minutes. cc: Tay Watts MD MTDD
[2020-02-28] MEDS: MIRALAX PO SCH (14:01)
[2020-02-28] MEDS: TYLENOL PO PRN (20:05)
[2020-02-28] MEDS: ZETIA PO SCH (20:06)
[2020-02-28] MEDS: ZOCOR PO SCH (20:06)
[2020-02-28] MEDS: ATIVAN IV PRN (22:36)
[2020-02-29] MEDS: HEPARIN 25,000 UNITS/D5W 25,000 UNIT/250 ML IV.SOLN IV SCH (00:23)
[2020-02-29 06:24] LABS: BASO# 0.02 X1000 (0.0-0.2); BASO% 0.4 % (0.0-0.8); EOS# 0.18 X1000 (0.0-0.7); EOS% 3.3 % (0.0-10.0); HEMATOCRIT 35.1 % (37.0-47.0); HEMOGLOBIN 11.1 g/dL (12.0-16.0); LYMPH# 1.55 X1000 (1.2-3.4); LYMPH% 28.1 % (20.5-51.1); MCH 27.7 PG (27-31); MCHC 31.6 g/dL (33-37); MCV 87.5 FL (81-99); MONO# 0.37 X1000 (0.11-0.59); MONO% 6.7 % (1.7-9.3); NEUT# 3.39 X1000 (1.4-6.5); NEUT% 61.5 % (42.2-75.2); PLT 222 X1000 (130-400); RBC 4.01 XMIL (4.2-5.4); RDW 13.5 % (11.5-14.5); WBC 5.51 X1000 (4.8-10.8)
[2020-02-29] MEDS: PRILOSEC PO SCH ×3 (06:34→20:11)
[2020-02-29] MEDS: SYNTHROID PO SCH (06:35)
[2020-02-29 06:46] LABS: AGAP 11; BUN 5 mg/dL (8-22); CALCIUM 8.5 mg/dL (8.8-10.2); CHLORIDE 109 mmol/L (98-107); COSMO 288; CREATININE 0.8 mg/dL (0.5-0.9); ESTIMATED GFR > 60; GLUCOSE 128 mg/dL (70-104); POTASSIUM 3.2 mmol/L (3.5-5.1); SODIUM 145 mmol/L (136-145); TCO2 25 mmol/L (25-35)
--- NOTE | 2020-02-29 06:54 | Extremity Venous Study ---
PROCEDURE NAME: Venous U/S Bilateral Legs - 02/26/2020 REQUESTING PHYSICIAN: Dr. Lopez. TOP LIFT NAILER: Valentina. INDICATION: DVT. EQUIPMENT: [employer] Vivid E9 ultrasound system with a 9 L-D transducer. FINDINGS: Images of the bilateral lower extremity venous systems were obtained in both sagittal and transverse planes. Doppler was used to evaluate the veins for spontaneity, phasicity, respiratory excursion, and digital augmentation. RESULTS: DVT noted in the left common femoral vein, superficial femoral vein, popliteal vein, posterior tibial vein. To the calf on the right side, there is no obvious superficial venous thrombosis noted. INTERPRETATION: Extensive deep venous thrombosis noted on the left side. No obvious pathology noted on the right side. Per the metallurgy laboratory technician's note, a preliminary report was given to Dr. Lopez at 10:45. cc: MD Luis M Francisco CRNP
[2020-02-29] MEDS: ASPIRIN PO SCH (08:18)
[2020-02-29] MEDS: VITAMIN D PO SCH (08:19)
[2020-02-29] MEDS: WELCHOL PO SCH ×3 (08:19→20:11)
[2020-02-29] MEDS: PRINZIDE 10/12.5MG PO SCH (08:19)
[2020-02-29] MEDS: VITAMIN B-12 SL SCH (08:19)
[2020-02-29] MEDS: NORVASC PO SCH (08:19)
[2020-02-29] MEDS ORDERED: HEPARIN 1000 UNITS/NS 1,000 UNIT/500 ML IV.SOLN ONE (10:16)
[2020-02-29] MEDS: MIRALAX PO SCH (11:47)
--- NOTE | 2020-02-29 11:54 | PROGRESS NOTE ---
DATE: 02/29/2020 SUBJECTIVE: This morning, Ms. Michael refers to be doing well. Denies any chest pain or shortness of breath. She told me that she is pending a procedure which she was not very sure about the name. I presume it is inferior vena cava filter placement. OBJECTIVE: Vital signs: Blood pressure is 146/68, pulse of 56, respiration is 16, temperature is 98.3 degrees. Patient is saturating 95% on room air. General: Ms. Michael is a 59-year-old female. She is in bed. No distress. HEENT: Mucosa is pink and moist. Anicteric. Acyanotic. Neck: Supple. Chest: Clear to auscultation. There were no crepitations, no rhonchi. Cardiovascular: Regular rate and rhythm. No murmurs, no rubs, no gallops. Abdomen: Soft, nontender. Bowel sounds present. Extremities: There is a cast on the left lower extremity. Right is unremarkable. CONTENT ADMINISTRATOR: Patient is awake, alert, and oriented. There is no focal deficit. LABORATORY DATA: WBC is 5.51, hemoglobin is 11.1, platelet count of 222,000. Chemistry is also reviewed, potassium is 3.2, rest of chemistry is unremarkable. ASSESSMENT: 1. Acute hypoxemic respiratory failure on presentation secondary to acute saddle pulmonary embolism. The patient was initially on supplemental oxygen. This has been titrated off. 2. Acute cor pulmonale due to saddle pulmonary embolism. Presumed provoked VTE (saddle pulmonary embolism associated with left lower extremity extensive deep venous thrombosis). The patient is currently on heparin drip. There is a plan to get her IVC filter. She remains, for most part, hemodynamically stable, and at this point, she remains asymptomatic. 3. Essential hypertension. We will continue with her home medications. We will try to avoid any potential hypotension since the patient is actually in right heart failure. 4. Diarrhea, resolved. 5. Hypothyroidism. Will continue with Synthroid. 6. Hypokalemia. We will replace. In general, I think Ms. Michael is doing well, currently off supplemental oxygen. She denies any shortness of breath or chest pain. She is pending a possible IVC filter placement after which we will then transition her current anticoagulants to oral. I will discuss this with Dr. Larios, the oncologist on board. cc: Sree Aguilar [facility]
--- NOTE | 2020-02-29 12:08 | GENERAL SURGERY CONSULTATION ---
DATE: 02/29/2020 REASON FOR CONSULTATION: IVC filter placement. CHIEF COMPLAINT: Initially shortness of breath. HISTORY OF PRESENT ILLNESS: This 59-year-old female has a recent left lower extremity fracture. She has been bed-bound because of this and is casted. She was on prophylactic Lovenox as an outpatient, but developed increasing shortness of breath, feeling chest pain. Came to CT scan where she was found to have a large saddle embolus and left lower extremity DVT. She was admitted. This was on the . She has been started on heparin. Her lower extremity ultrasound showed extensive DVT on the left side, nothing obvious on the right. She has been started on heparin drip and is improved from a pulmonary standpoint. SURGICAL HISTORY: Left foot and ankle surgery, cholecystectomy, hysterectomy, and knee surgeries. MEDICAL HISTORY: She has had no vascular procedures. She has hyperlipidemia, hypothyroidism, gastroesophageal reflux and hypertension. FAMILY HISTORY: Positive for blood clots and coronary disease. SOCIAL HISTORY: No tobacco, alcohol, drugs. MEDICATIONS: List is reviewed. She is currently on heparin drip. REVIEW OF SYSTEMS: A 10-point review of system was negative other than what is mentioned in her HPI. This 10-point review was performed. PHYSICAL EXAMINATION: Vital Signs: Currently, she is afebrile. Pulse 56, blood pressure 146/68, oxygen saturation 95% on room air. General: She is alert, no acute distress. HEENT: No scleral icterus. No cervical mass. Cardiovascular: Normal rate. Pulmonary: She is on room air with no increased work of breathing. Abdomen: Soft, nontender. Integument: Warm and dry. Psychiatric: Appropriate affect. Neurologic: No gross deficits. Peripheral Vascular: There is no right lower extremity edema. It is well perfused. Musculoskeletal: Left lower extremity cast. Does have normal capillary refill. Lymphatic: No cervical adenopathy. LABORATORY DATA: White count 5, hematocrit 35. Creatinine is 0.8. Her PTTs have been therapeutic over the last several days. I reviewed her imaging. ASSESSMENT AND PLAN: This is a 59-year-old female with large burden of thrombus in the left lower extremity and large saddle embolus. This also occurred while on prophylactic Lovenox. She has of a family history of hypercoagulable disorders. I spoke with Dr. Larios. He feels that given the large burden of clot that she has, that she would not tolerate any further embolus as this is a bilateral emboli and she continues to have a large burden of clot in her left leg. She has done well with heparin, but as such, I do agree that an IVC filter is indicated. We discussed risk of this bleeding, infection, migration, IVC thrombosis, persistent DVT in her leg, and possibility of continued emboli to her lungs, and the need for subsequent removal in about a 4 month period. She understands all of this consent. She is NPO. We are going to the operating room today for inferior vena cava filter placement. Will hold her heparin business solution analyst to the OR and resume it soon postoperatively once we ensure there are no bleeding issues. cc: Scott Carl MD
[2020-02-29] MEDS ORDERED: ANESTHESIA PB SET 88 IN 5742 ONE (12:52)
[2020-02-29] MEDS ORDERED: CLAVE TWINSITE 32 IN 11959 ONE (12:52)
[2020-02-29] MEDS ORDERED: NS 1,000 ML ONE (12:53)
[2020-02-29] MEDS ORDERED: DIPRIVAN 1% ONE (12:54)
[2020-02-29] MEDS ORDERED: VERSED ONE (12:55)
[2020-02-29] MEDS ORDERED: XYLOCAINE-MPF 2% ONE (13:39)
--- NOTE | 2020-02-29 14:20 | Diag Imaging Result Doc PS360 ---
KUB ABDOMEN - 02/29/2020 INDICATION: IVC filter placement COMPARISON: 02/25/2020 FINDINGS: There is an IVC filter in good position with the superior tip at L2. There are cholecystectomy clips. There is a nonobstructive bowel gas pattern. No free air or abnormal calcifications. IMPRESSION: No acute disease or complication. Electronically signed by Bharath Pugh 02/29/2020 2:18 PM
--- NOTE | 2020-02-29 15:20 | HEMO/ONC PROGRESS NOTE ---
DATE: 02/29/2020 SUBJECTIVE: Ms. Michael refers to be being doing very well today. She denies any pain. She is breathing much better. She is going to receive a retrievable IVC filter today. She is anxious about that procedure, but she understands that it is necessary for her condition. The patient has not had any nausea so far this morning. She denies any concerns. She had a good night's sleep. OBJECTIVE: Vital Signs: Temperature 98.3 degrees, pulse rate 56, respiratory rate 16, blood pressure 146/68, O2 saturation 95% on room air. She is in 0/10 pain. PHYSICAL EXAMINATION: General: Patient is in no acute distress. Cardiovascular: Normal S1, S2. Heart rate and rhythm regular rate bradycardic. Respiratory: Lung sounds clear to auscultation. Normal respiratory effort. Gastrointestinal: Abdomen soft, nondistended, nontender. Bowel sounds are present. Extremities: Left foot in the calf in a cast. Toes are warm and without edema. Right foot: No edema noted. Neurological: Alert and oriented x3. No focal motor deficits noted. LABORATORY: WBC is 5.51, hemoglobin 11.1, hematocrit 35.1, platelet count 222,000. Protein S within normal limits. Protein C within normal limits. Antithrombin III slightly low. ASSESSMENT AND PLAN: 1. Large saddle pulmonary embolism with lower extremity deep venous thrombosis. The patient remains on heparin drip, it was temporarily stopped this afternoon while she received an IVC filter by Serjio Carl. Procedure was successful. Heparin drip resumed. The patient tolerated the procedure well. We are continuing to monitor. 2. Hypertension and hypothyroidism. The patient's blood pressure has been normal so far today. Continue medical management. 3. Nausea. Her nausea is resolved today as of this morning. Continue nausea medicine as necessary if needed. 4. Anxiety. The patient is still struggling with anxiety regarding her condition. Dictated by FRAN Plummer for Syed Larios MD cc: Syed Larios MD
[2020-02-29] MEDS ORDERED: HEPARIN IV PRN (16:02)
[2020-02-29] MEDS ORDERED: ELIQUIS PO ONE (16:09)
--- NOTE | 2020-02-29 17:14 | OPERATIVE NOTE ---
PROCEDURE DATE: 02/29/2020 PREOPERATIVE DIAGNOSIS: Left lower extremity deep venous thrombosis with extensive bilateral pulmonary saddle embolus. POSTOPERATIVE DIAGNOSIS: Left lower extremity deep venous thrombosis with extensive bilateral pulmonary saddle embolus. PROCEDURES PERFORMED: 1. Ultrasound-guided access to the right femoral vein. 2. Placement of [employer] retrievable inferior vena cava filter. 3. Fluoroscopy of less 1 hour with inferior venacavogram. ESTIMATED BLOOD LOSS: Less than 5 mL. ANESTHESIA: MAC with local. INDICATION: A female who developed left lower extremity DVT while on prophylactic anticoagulation. She developed extensive bilateral saddle emboli with residual thrombus in the left leg and concerns of subsequent thrombus or thromboembolism being nonsurvivable. Filter was indicated. OPERATIVE FINDINGS: 1. Ultrasound of the right groin showed a compressible femoral vein with no thrombus. 2. Venogram showed bilateral renal veins above the level of L1. 3. Final venacavogram showed good positioning of an inferior vena cava filter between L2 and L3 with no evidence of obstruction and patent renal veins. OPERATIVE NOTE: Risks, benefits, and alternatives were discussed with the patient. She consented to the procedure. She was seen preoperatively and the surgical site was confirmed. Her right groin was prepped with a chlorhexidine solution and draped in the usual fashion. After a time- out, focused ultrasound was performed. We were able access the vein on first pass. Dark, nonpulsatile venous blood was noted on return. The wire threaded easily. A 6-[place] sheath was advanced, and the dilator and the wire were removed. We confirmed this was in good position on fluoroscopy. Before dilating the tract, we did ultrasound-confirm our wire coursed directly into the vein. At this point, it was positioned about the level of L3 vertebral body. A venogram was performed and the renal veins were identified. We selected our point between level 2 and level 3, and the device was advanced. It was deployed with good positioning. The vena cava was adequate diameter prior to this. At this point, a post venacavogram was performed. The sheath was removed. Pressure was held. Dressing was applied. She tolerated it well with no complications. cc: Scott Carl MD
[2020-02-29] MEDS: ZETIA PO SCH (20:11)
[2020-02-29] MEDS: ZOCOR PO SCH (20:11)
[2020-02-29] MEDS ORDERED: ELIQUIS PO SCH (21:00)
[2020-02-29] MEDS: ATIVAN IV PRN (22:30)
[2020-03-01] MEDS: PRILOSEC PO SCH ×2 (06:10→21:32)
[2020-03-01] MEDS: SYNTHROID PO SCH (06:10)
[2020-03-01] MEDS: ELIQUIS PO SCH ×2 (09:33→21:32)
[2020-03-01] MEDS: WELCHOL PO SCH ×3 (09:33→21:32)
[2020-03-01] MEDS: VITAMIN B-12 SL SCH (09:33)
[2020-03-01] MEDS: VITAMIN D PO SCH (09:33)
[2020-03-01] MEDS: PRINZIDE 10/12.5MG PO SCH (09:33)
[2020-03-01] MEDS: NORVASC PO SCH (09:48)
[2020-03-01] MEDS: MIRALAX PO SCH (09:48)
--- NOTE | 2020-03-01 10:33 | PROGRESS NOTE ---
DATE: 03/01/2020 SUBJECTIVE: Ms. Michael refers to be doing well, denies any new complaints. There is no chest pain or shortness of breath. She is off supplemental oxygen. OBJECTIVE: Vital signs: Blood pressure is 152/74, pulse of 57, respirations 15, temperature 98.6 degrees. General: Ms. Michael is a 59-year-old female, she is in bed, in no distress. HEENT: Mucosa is pink and moist. Anicteric. Acyanotic. Neck: Supple. Chest: Good air entry bilaterally. No true crepitations. No rhonchi. Cardiovascular: Regular rate and rhythm. No murmurs, no rubs, no gallops. GI: The abdomen was soft, nontender. Bowel sounds present. Extremities: No pedal edema. The left lower extremity is in an orthopedic cast. LABORATORY DATA: None for today. MEDICATIONS: Medications have all been reviewed. ASSESSMENT: 1. Acute hypoxemic respiratory failure on presentation secondary to PE, resolved. 2. Acute cor pulmonale due to subtle pulmonary embolism, presumably provoked from recent lower extremity surgery. The patient is on therapeutic Eliquis and she is status post IVC filter from yesterday. 3. Hypertension, controlled. 4. Diarrhea on presentation, resolved. 5. Hypothyroidism, stable. 6. Dyslipidemia. The patient is on Zocor and Zetia, and she is also on aspirin for secondary prophylaxis. 7. Recent left lower orthopedic surgery noted. PLAN: In general, Ms. Michael is doing well. We are going to transfer her from the critical care unit to the medical floor. At this point, I think Ms. Michael will be safe to be transferred from her bed to a chair with assistance. We will still not let her walk yet until tomorrow when she would have at least 3 doses of her Eliquis. We will also be pending further recommendations from Dr. Larios. cc: Sree Aguilar MD
--- NOTE | 2020-03-01 17:06 | GENERAL SURGERY PROGRESS NOTE ---
DATE: 03/01/2020 SUBJECTIVE: She feels well. No fevers. No tachycardia. Remains on room air. Her right groin was [*] with no significant bruising. ASSESSMENT/PLAN: A 59-year-old female with extensive bilateral pulmonary emboli and extensive lower extremity deep venous thrombosis with [*] She is doing well status post inferior vena cava filter placement. We will see her back in approximately 3 to 3-1/2 months to schedule filter removal. Otherwise, we will continue anticoagulation. cc: Scott Carl MD
[2020-03-01] MEDS: ZETIA PO SCH (21:31)
[2020-03-01] MEDS: ZOCOR PO SCH (21:32)
[2020-03-01] MEDS: ZOFRAN IV PRN (23:59)
[2020-03-02] MEDS: MORPHINE IV PRN
[2020-03-02] MEDS: TYLENOL PO PRN ×2 (05:55→22:10)
[2020-03-02] MEDS: SYNTHROID PO SCH ×2 (05:55→09:15)
[2020-03-02] MEDS: PRILOSEC PO SCH ×3 (05:55→22:10)
[2020-03-02] MEDS: VITAMIN D PO SCH (09:15)
[2020-03-02] MEDS: WELCHOL PO SCH ×2 (09:16→22:09)
[2020-03-02] MEDS: MIRALAX PO SCH (09:16)
[2020-03-02] MEDS: ELIQUIS PO SCH ×2 (09:16→22:09)
[2020-03-02] MEDS: PRINZIDE 10/12.5MG PO SCH (09:16)
[2020-03-02] MEDS: ASPIRIN PO SCH (09:16)
[2020-03-02] MEDS: NORVASC PO SCH (09:16)
[2020-03-02] MEDS: VITAMIN B-12 SL SCH (09:16)
--- NOTE | 2020-03-02 12:41 | PROGRESS NOTE ---
DATE: 03/02/2020 SUBJECTIVE: I have seen and examined Ms. Michael today. Ms. Michael refers to be doing a lot better. She was actually getting ready to be evaluated by physical therapy. OBJECTIVE: Vital Signs: Blood pressure is 110/66, pulse of 62, respirations are 22, temperature is 97.9 degrees. General Examination: Ms. Michael is a 59-year-old , female. She was sitting at the edge of the bed. No distress. HEENT: Mucosa is pink and moist. Anicteric. Acyanotic. Neck: Supple. Chest: Good air entry bilaterally. There were no crepitations. No rhonchi. Cardiovascular: Regular rate and rhythm. No murmurs, no rubs, no gallops. GI: Abdomen was soft, nontender. Bowel sounds present. Extremities: No pedal edema. MOLDER CLOSED MOLDS: The patient is awake, alert, and oriented. Musculoskeletal: The patient has an orthopedic cast on the left lower extremity. Laboratory Data: None for today. ASSESSMENT: 1. Acute hypoxemic respiratory failure on presentation secondary to massive pulmonary embolism, improved. 2. Acute cor pulmonale due to saddle pulmonary embolism, presumed provoked from recent lower extremity surgery. The patient is currently on therapeutic Eliquis. She underwent inferior vena cava filter placement. 3. Hypertension, controlled. 4. Hypothyroidism, stable on levothyroxine. 5. Dyslipidemia. Patient is on Zocor and Zetia. 6. Recent left lower extremity orthopedic surgery. Patient continues to be in an orthopedic cast. Has an appointment to get it removed tomorrow early in the morning. 7. Diarrhea on presentation, resolved. PLAN: In general, I think Ms. Michael is doing a lot better. She is currently pending evaluation with physical therapy. We are going to follow up on that. I think once she is cleared to be stable enough to do basic things for herself, we will be able to discharge her first thing in the morning. Ms. Michael will need to follow up with Dr. Larios and also with the orthopedic surgeons. cc: Sree Aguilar MD [facility]
[2020-03-02] MEDS: ZOCOR PO SCH (22:10)
[2020-03-02] MEDS: ZETIA PO SCH (22:10)
[2020-03-03] MEDS: SYNTHROID PO SCH (06:36)
[2020-03-03] MEDS: PRILOSEC PO SCH (06:36)
[2020-03-03 08:16] VITALS: BP 122/70
[2020-03-03] MEDS: ELIQUIS PO SCH (08:37)
[2020-03-03] MEDS: VITAMIN D PO SCH (08:37)
[2020-03-03] MEDS: MIRALAX PO SCH (08:37)
[2020-03-03] MEDS: VITAMIN B-12 SL SCH (08:37)
[2020-03-03] MEDS: NORVASC PO SCH (08:38)
[2020-03-03] MEDS: ASPIRIN PO SCH (08:38)
[2020-03-03] MEDS: PRINZIDE 10/12.5MG PO SCH (08:38)
[2020-03-03] MEDS: WELCHOL PO SCH ×2 (08:38)
--- NOTE | 2020-03-03 18:19 | DISCHARGE SUMMARY ---
ADMISSION DATE: 02/25/2020 DISCHARGE DATE: 03/03/2020 DISPOSITION: Home. FOLLOWUP: 1. Dr. Larios. 2. Dr. Carl. CONSULTATIONS: During this admission, Hematology/Oncology was consulted. The patient was seen by Dr. Larios. Surgery was consulted. The patient was seen by Dr. Carl. PROCEDURES: Invasive procedure done during this admission, placement of Option Elite retrievable inferior vena cava filter, done by Dr. Carl on 02/29/2020. ADMISSION DIAGNOSES: 1. Large saddle pulmonary embolus. 2. Hypertension. 3. Diarrhea. 4. Hypothyroidism. DISCHARGE DIAGNOSES: 1. Acute hypoxemic respiratory failure on presentation secondary to massive saddle pulmonary embolism. 2. Acute cor pulmonale due to saddle pulmonary embolism, presumed to be provoked from recent lower extremity orthopedic surgery on top of the patient's chronic therapy with estrogen. 3. Hypertension. 4. Hypothyroidism. 5. Dyslipidemia. 6. Recent left lower extremity orthopedic surgery. 7. Diarrhea on presentation, resolved. DISCHARGE MEDICATIONS: 1. Atenolol 50 mg p.o. daily. 2. Welchol 2 tablets 3 times per day. 3. Zetia 10 mg p.o. daily. 4. Levothyroxine 25 mg p.o. daily. 5. Lisinopril with hydrochlorothiazide 1 tablet daily. 6. Simvastatin 20 mg p.o. at bedtime. 7. Cholecalciferol. 8. Esomeprazole 20 mg b.i.d. 9. Aspirin 81 mg p.o. daily. 10. Apixaban 10 mg p.o. b.i.d. for 5 days, and apixaban 5 mg b.i.d. for 3 months. PRESENTING COMPLAINT: Diarrhea and shortness of breath. HISTORY OF PRESENTING COMPLAINT: Ms. Michael is a 59-year-old female who had left lower extremity surgery with jimmy placement on February 06. She has been bedbound for the most part. She started to have some abdominal discomfort, nausea, vomiting and diarrhea. Subsequently she started having some shortness of breath, so she came to the emergency room where she was evaluated. She was found to have extremely elevated D-dimer, so CTA of the lungs was done which showed a large saddle emboli. The patient was admitted for further medical care. HOSPITAL COURSE: Ms. Michael was admitted to the stepdown unit, was started on IV heparin and Hematology/Oncology was consulted. The patient was seen by Dr. Larios, who after consultation recommended surgery to be evaluated for IVC filter placement. This was successfully done, after which Ms. Michael was switched from IV heparin to p.o. Eliquis. She was observed for about 72 hours in the hospital. She was evaluated by Physical Therapy. She continued to improve. We think she is now fairly stable to be discharged, on Eliquis 10 mg to complete a total of 7 days, and then switch to 5 mg b.i.d. She is going to follow up with Dr. Larios. Ms. Michael was on estrogen therapy because of previous bilateral oophorectomy; however, I advised that estrogen therapy could also predispose her to form blood clots, and she needs to re-evaluate this with her primary care doctor to see if she needs to be on that any longer. Ms. Michael has also been advised to avoid any NSAIDs since she is going to be on an aspirin and Eliquis combination, just to potentiate any future GI bleed. All the discharge instructions have been discussed with her, and she voiced understanding. Time spent for discharge is 38 minutes. cc: MD Syed Gutierrez MD R. Tyler Harney, MD
--- NOTE | 2020-03-06 04:36 | HEMO/ONC PROGRESS NOTE ---
DATE: 03/03/2020 SUBJECTIVE: Ms. Michael is sitting up in bed, doing very well today. She is very happy to be going home. She is very thankful for her care that she received while in the hospital. She is comfortable going home at this time. She will remain on Eliquis. She knows she will follow up with us in the office in approximately a week. She will be following up with Orthopedics as well regarding her cast. The patient should be going home today. She denies any concerns this morning. OBJECTIVE: Vital Signs: Temperature 97.8 degrees, pulse rate 73, respiratory rate 18, blood pressure 122/70, and O2 saturation 97% on room air. She is in 0/10 pain. General: On physical exam, the patient is in no acute distress. Cardiovascular: Normal S1 and S2. Heart rate and rhythm are regular. Respiratory: Lung sounds clear to auscultation. Normal respiratory effort. Extremities: Left foot in a cast. Neither extremity has any edema. Neurological: Alert and oriented x3. No focal motor deficits noted. LABORATORY DATA: No labs were done today. ASSESSMENT AND PLAN: 1. Large saddle pulmonary embolism with lower extremity deep venous thrombosis. The patient was transitioned successfully to Eliquis twice a day. She also had an inferior vena cava filter placed that is retrievable. The patient has walked around, was assessed by physical therapy. The patient will use a walker to help her get around. We will follow up with the patient regarding her hypercoagulable workup and continued anticoagulation in approximately a week. 2. Hypertension and hypothyroidism. This will continue to be followed by her primary care physician. 3. Anxiety. The patient will follow up with her primary care physician. 4. Left lower ankle fracture and surgery. The patient will follow up with Orthopedics. She will be using a walker at this time. She is hoping to get the cast removed this week. Dictated by FRAN Plummer for Syed Larios MD cc: Syed Larios MD
== END 2020-03-03 10:48 | disposition home health service (06) | DRG 252 ==
LOC: P.ED 16:53 → 2N 16:54 → SUATTDRO 16:54 → 3N 03-01 12:48
PROVIDERS: ATTEND Internal Medicine